=== PATIENT | female | born 1960 | race Caucasian/White ===

== ENCOUNTER → 2020-02-13 17:00 | Emergency (ER) | payer SELFPAY ==
--- NOTE | 2020-02-13 17:10 | NUR ---
spoke with patient, stated she only wanted to be tested for the COVID19 VIRUS. pt states she is having headache, fever, cough but denied being exposed or around anyone that has tested positive. pt talking in full sentences and alert and oriented x 3. again aske d pt to sign in for a medical screening and pt refused.
== END | disposition short-term general hospital (02) ==
LOC: FSED 17:00
DX: R50.9 Fever, unspecified (principal)